=== PATIENT | male | born 1985 | race Caucasian/White ===

== ENCOUNTER → 2019-07-29 10:02 | Outpatient (CLI) | payer OTHER, SELFPAY ==
[2019-07-29 08:38] VITALS: BMI 34.6
--- NOTE | 2019-07-29 08:40 | VAS_PTH ---
PATIENT: ARJUN SCHULTZ LOC: [facility]#:[id number] AGE/SX: 39/M ROOM: RE07/29/[address]: Dr. Yeison Booth MD : [id number] BED: DIS: SPEC #: [id number] RECD: 07/29/19 10:02 STATUS: JELENA GE #: [id number] NILDA: 07/29/19 08:[address]: Yeison Booth DEPT: SURGICAL PATHOLOGY RECD BY: Elias Acosta ENTERED: 07/29/19 11:45 SP TYPE: VAS OTHR DR: Pari Grey, MEDICAL SERVICE TECHNICIAN-Jeff Tissues: A - Vas deferens, NOS B - Vas deferens, NOS Procedures: Surgery Specimen Level II HEADER OPERATION: Bilateral partial vasectomy PRE-OP DIAGNOSIS: Sterilization TISSUE SUBMITTED: A - Right vas deferens, B - Left vas deferens MICROSCOPIC DIAGNOSIS A. Right vas deferens, partial vasectomy: Completely transected segment of vas deferens, no pathologic diagnosis. B. Left vas deferens, partial vasectomy: Completely transected segment of vas deferens, no pathologic diagnosis. EWA:anselmo 08/01/19 MICROSCOPIC DESCRIPTION Slides are reviewed. GROSS DESCRIPTION A - Received is one container designated right vas deferens. The specimen consists of a tubular segment of joseph soft tissue measuring 1 cm in length and 0.3 cm in diameter. The entire specimen is submitted in one cassette. It will be sectioned at the time of embedding. B - Received is one container designated left vas deferens. The specimen consists of a tubular segment of joseph soft tissue measuring 1.2 cm in length and 0.3 cm in diameter. The entire specimen is submitted in one cassette. It will be sectioned at the time of embedding. / EWA:anselmo 07/29/19 TC:4 CPT: 27504 x2
== END ==
PROVIDERS: Family Provider Nurse Practitioner; PCP Nurse Practitioner; Referring Provider Surgery; Visit Provider Surgery
DX: Z30.2 Encounter for sterilization (principal)
CPT/HCPCS: 88302

== ENCOUNTER → 2019-09-21 07:47 | Outpatient (CLI) | payer OTHER, SELFPAY ==
[2019-07-29 08:38] VITALS: BMI 34.6
[2019-09-21 13:32] LABS: Semen Analysis Post Vas ABSENT
== END ==
PROVIDERS: PCP Nurse Practitioner; Referring Provider Surgery; Visit Provider Surgery
DX: Z30.2 Encounter for sterilization (principal)
CPT/HCPCS: 89321

== ENCOUNTER → 2024-10-04 | Outpatient (CLI) | payer OTHER, SELFPAY ==
[2024-10-04 10:49] LABS: Basophil% 1.5 % (0-1); Eosinophil# 0.25 X10^3/uL; Eosinophils% 3.7 % (0-5); Hematocrit 44.5 % (40-54); Lymphocyte % 26.6 % (19-41); Mean Corp Hgb Conc 33.7 g/dL (32-36); Mean Corpuscular Hgb 30.4 pg (27.0-32.0); Mean Corpuscular Volume 90.3 fL (80-94); Mean Platelet Vol. 10.1 fl (6.2-12.0); Monocyte# 0.46 X10^3/uL; Monocyte% 6.8 % (0-10); NRBC Flagged by Analyzer 0 % (0-5); Neutrophil # 4.03 X10^3/uL (2.7-7.7); Neutrophil % 59.5 % (47-70); Platelet Count 288 K/mm3 (150-450); RBC Distribution Width CV 12.9 % (11.6-14.6); RBC Distribution Width SD 42.3 fl (35.1-43.9); Red Blood Count 4.93 M/mm3 (4.6-6.2); White Blood Count 6.8 K/mm3 (4.4-11.0)
[2024-10-04 12:53] LABS: Amylase 40 U/L (28-100); Lipase 22 U/L (13-75)
[2024-10-04 14:48] LABS: ALB/GLOB Ratio 1.6 RATIO (0.9-2.4); AST(SGOT) 32 U/L (<=37); Alanine Aminotransfer ALT/SGPT 63 U/L (<=46); Albumin, Serum 4.5 g/dL (3.5-5.0); Alkaline Phosphatase 74 U/L (40-129); BUN 14 mg/dL (4-19); BUN/Creat Ratio 15.5 RATIO (10-20); Cholesterol 173 mg/dL (<=200); Creatinine, Serum 0.9 mg/dL (0.8-1.3); EST Glomerular Filtration Rate 101 (>60); Globulin 2.8 g/dL (2.2-4.2); Glucose 79 mg/dL (70-99); High Density Lipoprotein 33 mg/dL; Protein, Total 7.3 g/dL (5.9-8.4); Total Bilirubin 0.61 mg/dL (0.00-1.30); Triglycerides 141 mg/dL; Very Low Density Lipoprotein 28 mg/dL (5-40)
[2024-10-04 14:59] LABS: Calcium,Total 9.3 mg/dL (7.6-11.0); Potassium 4.2 mmol/L (3.5-5.1); Sodium Level 140 mmol/L (136-145)
[2024-10-04 15:00] LABS: Anion Gap 12 (5-15); Carbon Dioxide 23.9 mmol/L (21.0-32.0); Chloride 104 mmol/L (98-107)
[2024-10-05 00:18] LABS: Vitamin D,25 Hydroxy 24.5 ng/mL (30-100)
[2024-10-05 20:53] LABS: Hemoglobin A1c 5.3 % (<=5.6)
== END | disposition home or self-care (01) ==
LOC: LABSPEC 10:27
PROVIDERS: PCP Nurse Practitioner Family; Referring Provider Nurse Practitioner Family; Visit Provider Nurse Practitioner Family
DX: I10 Essential (primary) hypertension (principal); E78.00 Pure hypercholesterolemia, unspecified; E55.9 Vitamin D deficiency, unspecified; R74.01 Elevation of levels of liver transaminase levels
CPT/HCPCS: 80053; 80061; 82150; 82306; 83036; 83690; 84443; 85025